=== PATIENT | male | born 1985 | race Caucasian/White ===

== ENCOUNTER → 2019-11-29 | Outpatient (CLI) | payer OTHER ==
[~2019-11-29] MED LIST: CATHETER FLUSH 10 ML SYR IV PRN; HOLD METFORMIN - RECEIVED CONTRAST 20 ML VIAL IV SCH; IOHEXOL 350 MG/ML 100 ML (OMNIPAQUE 350) VIAL IV ONE; NS 100 ML (IVPB) BAG IV ONE
--- NOTE | 2019-11-29 17:00 | Diagnostic Imaging Report ---
PROCEDURE: CT abdomen and pelvis with contrast. TECHNIQUE: Multiple contiguous axial images were obtained through the abdomen and pelvis after administration of intravenous contrast. Auto Exposure Controls were utilized during the CT exam to meet ALARA standards for radiation dose reduction. INDICATION: Abdominal pain, cough, and fatigue. FINDINGS: The [id number]-sy-hzoniy small bowel is mildly distended and showed an elevated intraluminal fluid load as well as some mild mucosal hyperemia and hyperenhancement. This is found through the level of the terminal ileum without transition zone. The appendix is visualized and normal. There is some stool and air within the colonic lumen. The colonic fecal load is not grossly pathologic. No evidence for impaction or obstruction. No appreciable perienteric or pericolonic edema. The stomach is distended with fluid and ingested material. The gastric wall is non thickened. There is no perigastric edema. The pancreas is normal. There is diverticulum off the first duodenum. Liver, gallbladder, bile ducts, spleen, and adrenals are all unremarkable. The unobstructed kidneys appeared normal. There is no ascites, abscess, hematoma, or fluid collection. The urinary bladder appeared unremarkable. There is no mesenteric or retroperitoneal adenopathy. The lung bases and the osseous structures are normal. IMPRESSION: 1. Normal appendix with unobstructed urinary tracts. 2. Mildly elevated fluid load with mucosal hyperemia involving the [id number]-he-[id number] small bowel through the terminal ileum without transition. There is mild fluid distention of the stomach. Findings raise the question of nonspecific gastroenteritis. No overtly obstructive features or transition zone. 3. Nonfocal unobstructed urinary tracts with no hepatobiliary abnormality, the remaining structures are normal. Dictated by: Dictated on workstation # [id number]
== END ==
LOC: RAD FS 16:22
PROVIDERS: ATTEND Nurse Practitioner
DX: K31.89 Other diseases of stomach and duodenum (principal); R10.9 Unspecified abdominal pain; R05 Cough; R53.83 Other fatigue
CPT/HCPCS: 74177